=== PATIENT | female | born 1945 | race Caucasian/White ===

== ENCOUNTER 2019-09-18 07:59 | Day surgery (SDC) | payer MEDICARE, BC ==
[2019-09-18] VITALS (11 sets, daily range): BP systolic 114–138; BP diastolic 65–87; PULSE 52–67; TEMP 99.4
[~2019-09-18] VITALS: Ht 157.5 cm; Wt 78.0 kg
[2019-09-18 08:29] LABS: HEMATOCRIT 43.6 % (37.0-47.0); HEMOGLOBIN 14.3 g/dl (12.5-16.0); MEAN CELL VOLUME 95 fl (80.0-100.0); MEAN CORPUSCULAR HEMOGLOBIN 31 pg (27.0-31.0); MEAN CORPUSCULAR HGB CONC 33 g/dl (33.0-37.0); MEAN PLATELET VOLUME 11.5 fl (7.4-10.4); PLATELET COUNT 183 K/mm3 (130-400); RED BLOOD COUNT 4.58 M/mm3 (4.10-5.30); REDCELL DISTRIBUTION WIDTH-CV 13.9 % (11.5-14.5)
[2019-09-18 08:32] LABS: INR 0.9 (0.8-3.0); PROTHROMBIN TIME 10.9 SECONDS (9.7-12.8)
[2019-09-18 08:34] LABS: PARTIAL THROMBOPLASTIN TIME 34.5 SECONDS (26.0-37.0)
[2019-09-18 08:37] LABS: CALCIUM 9.2 mg/dL (8.4-10.2); CREATININE, serum 0.99 (0.52-1.25); POTASSIUM 4.2 mmol/L (3.4-5.0)
[2019-09-18] MEDS ORDERED: ASPIRIN E.C. 8181 MG PO (08:59)
[2019-09-18] MEDS ORDERED: TOPROL XL 50MG50 MG PO (09:00)
[2019-09-18] MEDS ORDERED: LIPITOR 40MG TA40 MG PO (09:01)
[2019-09-18] MEDS ORDERED: ISMO 20MG20 MG PO (09:01)
[2019-09-18] MEDS ORDERED: PRINIVIL10 MG PO (09:01)
[2019-09-18] MEDS ORDERED: NITROSTAT0.4 MG/TAB SL (09:02)
[2019-09-18] MEDS ORDERED: VITAMIN D31000 I1 PO (09:02)
[2019-09-18] MEDS ORDERED: VITAMIN B-6100 MG PO (09:04)
[2019-09-18] MEDS ORDERED: VITAMIN B122500 MCG PO (09:05)
[2019-09-18] MEDS ORDERED: VITAMIN C500 MG PO (09:06)
[2019-09-18] MEDS ORDERED: NATURAL E400 IU PO (09:06)
[2019-09-18] MEDS ORDERED: CALCIUM-MAGNES1 EAC1 PO (09:07)
[2019-09-18] MEDS ORDERED: OMEGA-31 SGL PO (09:08)
--- NOTE | 2019-09-18 09:36 | NUR ---
SEE MERGE DOCUMENTATION FOR MEDICATION ADMINISTRATION TIMES AND INTRA/POST PROCEDURE SEDATION ASSESSMENTS. BARBEAU TEST POSITIVE TO RIGHT WRIST.
--- NOTE | 2019-09-18 10:35 | NUR ---
Pt returned to EU 12 per bed s/p heart cath. Pt resting well, at bedside.
--- NOTE | 2019-09-18 13:20 | NUR ---
R wrist cath site started bleeding with 8 mL air removed. 8 mL air reinstilled and hemostasis obtained. Distal pulse +2, hand pink with good cap refill.
--- NOTE | 2019-09-18 13:30 | NUR ---
Pt has ambulated, voided and tulio PO intake s n/v.
--- NOTE | 2019-09-18 14:17 | NUR ---
Report received from Jarrett Morgan.
--- NOTE | 2019-09-18 15:40 | NUR ---
rIGHT RADIAL DRESSING OBSERVED CLEAN,DRY,INTACT,SOFT TO TOUCH.PT VERBALIZES UNDERSTANDING OF DC INSTRUCTIONS.int REMOVED,CATHETER TIP INTACT.PT ESCORTED OUT VIA WHEELCHAIR BY THIS NURSE.
== END 2019-09-18 15:55 | disposition home or self-care (01) ==
LOC: COL.CAR 07:59
PROVIDERS: Internal Medicine Cardiovascular Disease
DX: R07.9 Chest pain, unspecified (principal); R94.39 Abnormal result of other cardiovascular function study; I10 Essential (primary) hypertension; E78.5 Hyperlipidemia, unspecified; Z79.82 Long term (current) use of aspirin; Z83.3 Family history of diabetes mellitus; Z82.49 Family history of ischemic heart disease and other diseases of the circulatory system; Z80.8 Family history of malignant neoplasm of other organs or systems
CPT/HCPCS: C1769; J1644; J2250; J3010; Q9967